=== PATIENT | male | born 1970 | race Two or more races ===

== ENCOUNTER 2025-05-30 23:51 | Emergency (ER) | payer OTHER ==
[~2025-05-30] VITALS: Ht 180.3 cm; Wt 120.2 kg
[2025-05-31] MEDS ORDERED: RESTORIL30 MG PO (00:44)
[2025-05-31] MEDS ORDERED: MONTELUKAST SOD10 MG PO (00:44)
[2025-05-31] MEDS ORDERED: RISPERIDONE1 MG PO (00:44)
[2025-05-31] MEDS ORDERED: BUPROPION XL150 MG (00:44)
[2025-05-31] MEDS ORDERED: OMEPRAZOLE20 MG PO (00:44)
[2025-05-31] MEDS ORDERED: CLONAZEPAM1 MG PO (00:44)
[2025-05-31] MEDS ORDERED: ATORVASTATIN CA20 MG PO (00:45)
[2025-05-31] MEDS ORDERED: FLONASE16 GM NS (00:45)
[2025-05-31] MEDS ORDERED: LISINOPRIL20 MG PO (00:45)
[2025-05-31] MEDS ORDERED: DIVALPROEX SOD500 M1 PO (00:45)
[2025-05-31] MEDS ORDERED: PANTOPRAZOLE SO40 MG PO (00:46)
[2025-05-31] MEDS ORDERED: METFORMIN HCL500 M4 PO (00:46)
[2025-05-31] MEDS ORDERED: FAMOTIDINE40 MG PO (00:46)
== END 2025-05-31 | disposition left against medical advice (07) ==
LOC: ER 23:51
DX: Z53.21 Procedure and treatment not carried out due to patient leaving prior to being seen by health care provider (principal)